=== PATIENT | male | born 1935 | race Caucasian/White ===

== ENCOUNTER 2016-05-12 09:07 | Emergency (ER) | payer OTHER, BC ==
[2016-05-12] MEDS ORDERED: NORMAL SALINE 10 ML SYRINGE FLUSH IVP PRN (09:35)
[2016-05-12 09:52] VITALS: RESP 16; TEMP 97
[2016-05-12 10:00] LABS: BUN/CREATININE RATIO 21.11 (6-20); CALCIUM 9.6 mg/dL (8.7-10.7); CREATININE 0.9 mg/dL (0.70-1.50); POTASSIUM 3.9 meq/L (3.8-5.2)
--- NOTE | 2016-05-12 11:07 | DI ---
CT SCAN OF THE NECK WITH IV CONTRAST, 05/12/2016 9:35 AM : Clinical History: Pain in the left neck extending into the throat and ear. Previous Exam: None at this facility. Scans are obtained from below the sternal notch to the petrous pyramids with IV contrast. Sagittal an d coronal images are generated. 75 ml of Isovue 300 was injected IV. The cervical vertebral bodies are of normal height and size. There is disc space narrowing at every c ervical level and there is anterior subluxation of C5 on C6 by 1 mm. The proximal 3 cm of each production intern al carotid artery is heavily calcified. There is an estimated 50% diameter stenosis in the proximal r ight internal carotid artery with no significant stenosis in the left internal carotid artery. There are no soft tissue masses on either side. No lymphadenopathy is identified. The thyroid gland, the zacarias bmandibular glands, and the parotid glands are normal. READIN. Normal CT neck scan. There is no adenopathy or evidence of a neck mass or abscess. 2. Both internal carotid arteries are heavily calcified but there is no obvious stenosis on the left side and an estimated 50% diameter stenosis on the right side. 3. Diffuse chronic disc space narrowing in the cervical spine. There is chronic anterior subluxation of C5 on C6 by 1 mm.
--- NOTE | 2016-05-12 11:28 | PDOC ---
Neck Pain / Injury HPI - General Chief Complaint: Sore Throat Stated Complaint: throat pain Date Seen by Provider: 05/12/16 Time Seen by Provider: 09:20 Source: POSITIVE: Patient - History of Present Illness Initial Comments: Patient is a very nice 80-year-old gentleman who presents to the emergency department with complaints of ongoing pain in his neck over the last week or 2. He also has had some episodes of sharp stabbing pain in his neck as well. He denies any recent weight loss or fever denies sore throat denies hearing troubles or changes though the pain does go up into his ear and into his throat intermittently. He denies any new or different trouble swallowing though he has had trouble swallowing in the past which have necessitated esophageal dilatation with EGD. He is a nonsmoker non-chewer, does not drink heavily. - Patient Home Medications Home Medications: Home Medications Vitamin B Complex/Folic Acid [B-Complex 100 Tablet] 1 tab PO DAILY 02/09/12 Nebivolol HCl [Bystolic] 1 tab PO DAILY #0 02/02/14 Aspirin 1 tab PO DAILY tab 07/13/14 Vardenafil HCl [Levitra] 20 mg PO DAILY #6 tab 09/25/14 Losartan Potassium 1 tab PO DAILY #30 tab 06/06/15 Pantoprazole Sodium 40 mg PO DAILY #90 tab 09/11/15 - Patient Allergies Allergies/Adverse Reactions: Allergies Allergy/AdvReac Type Severity Reaction Status Date / Time No Known Drug Allergies Allergy NOT Verified 05/12/16 09:09 APPLICABLE Past Medical History - heen HEENT History: Cataracts Additional HEENT History: VERY SMALL CATARACTS BILAT. cataract surgery 04/2016 Cardiovascular History: Hypertension, Pacemaker Additional Cardiovasular History: HX OF COMPLETE HEART BLOCK 2010/ AORTIC ANEURYSM 09/21/BRADYCARDIA. AAA Respiratory History: Denies History Gastrointestinal History: GERD Additional Gastrointestinal History: HX OF POLYPS AND DYSPHAGIA Genitourinary History: Denies History Endocrine History: Denies History Musculoskeletal History: Arthritis, Joint Pain, Physical Limitation Prosthesis or Implant: Yes (MESH BILAT INGUINAL HERNIA/L KNEE TOTAL) Additional Musculoskeletal History: Left TKA 12-27-13 Neurological History: Denies History Blood Disorders: Denies History Psychiatric History: Substance Abuse Additional Psychiatric History: ALCOHOL History of Sexually Transmitted Diseases: No Male Reproductive History: Denies History Cancer History: Skin In Past Year Been Physically Harmed or Verbally Threatened: No History of MDRO: Unknown History of Other Communicable Diseases: No Tobacco Use: Former Smoker Alcohol Use: Heavy Substance Use Type: None Previous Surgical History: Yes Type / Date of Surgery: PACEMAKER 2011/ BILAT INGUINAL HERNIA WITH MESH/ COLONOSCOPY/EGD/TONSILS/L TKA 12-27-13 Anesthesia Reactions: No Malignant Hyperthermia: No Significant Family History: No pertinent family hx Past Medical History Reviewed: Reviewed - No Changes ROS - Limitations ROS Limitations: No Limitations Constitution: REPORTS: Denies Symptoms Cardiovascular: REPORTS: Denies Cardiac Symptoms Respiratory: REPORTS: Denies Resp Symptoms Neck Pain/Injury Exam - General Appearance General Appearance: REPORTS: Alert, Cooperative, No Acute Distress - HEENT HEENT: POSITIVE: Head Inspection Nml, Oral/Dental Inspect. Nml, Pharynx Inspect. Nml, Other (He has some tenderness in the left aspect of his neck underneath the mandible to deep palpation. No obvious lymphadenopathy or substantial mass or other obvious physical finding other than tenderness.) - Neck Neck: POSITIVE: Normal Inspection, Non-Tender - Back Back: REPORTS: Normal Inspection - Respiratory / CVS Respiratory / CVS: POSITIVE: Chest Non Tender, No Respiratory Distress Neck Pain/Injury Progress - Results Reviewed by me Xrays/CTs/US Reviewed by me: Yes Radiology Findings: Chest x-ray shows no obvious abnormality to me official over read is pending. CT scan of his head and neck are benign with some carotid calcification to about 50% stenosis otherwise benign Lab Results Reviewed: Yes Lab Results:: Laboratory Results 05/12/16 Range/Units 09:35 Sodium 144 (135-145) meq/L Potassium 3.9 (3.8-5.2) meq/L Chloride 104 (98-112) meq/L Carbon Dioxide 26 (23-33) meq/L Anion Gap 14 (5-20) BUN 19 (7-22) mg/dL Creatinine 0.9 (0.70-1.50) mg/dL Estimated GFR (>60 ml/min/1.73m(2)) BUN/Creatinine Ratio 21.11 H (6-20) Glucose 99 (78-110) mg/dL Calculated Osmolality 299.0 H (267-292) mOsm/kg Calcium 9.6 (8.7-10.7) mg/dL - Patient's Progress MDM / ED Course: This patient has a benign physical exam he has no clear evidence of pathology on a CT scan of his neck. I'm not exactly sure what the pain generator is for this fellow. I have encouraged him to watch his symptoms closely use some Tylenol as needed and follow-up with his regular doctor in about a week. If his symptoms are persisting he may need to have consultation with ear nose and throat or neurology or something of that nature. Ultimately I reassured them that CT does not show anything substantial and that I don't see anything on exam that he has to be terribly worried about. Patient Care Time - Estimated PCT Patient Care Time (In Minutes): 30 Vital Signs - Recent Vital Signs Vital Signs: Vital Signs (Last 8 hours) Temp Pulse Resp BP Pulse Ox 05/12/16 09:08 97 F 83 16 142/98 95 - VS Reviewed Vital Signs Reviewed: Yes Discharge Clinical Impression: Neck pain Discharge Disposition: Discharged to Home Condition: Stable Patient Instructions Given at Discharge: Acute Neck Pain (ED) Additional Instructions: Follow-up with your primary care provider in the near future to discuss official results of your chest x-ray and to discuss your neck pain Use Tylenol as needed for occasional pain Consider seeing nuclear engineer if your pain persists or worsens Follow Up With: BRENT BOWENS [Primary Care Provider] -
--- NOTE | 2016-05-12 11:46 | DI ---
PA /LATERAL CHEST X-RAY, 05/12/2016 9:58 AM : Clinical History: Cough. Gastroesophageal reflux disease. Neck pain. Previous Exam: 06/14/2013. There is no acute soft tissue or bony abnormality. The patient has a dual-chamber pacemaker and the l sarika are in the appropriate position. There is cardiomegaly without CHF. Right lower lobe atelectasis is present along with some discoid atelectasis above the left costophrenic angle. There is a density overlying the lower thoracic spine in this is probably a combination of a hiatal hernia and a tortuo us aorta. There are no pulmonary nodules. Readin. There is no acute infiltrate or effusion. 2. Cardiomegaly without CHF.
== END 2016-05-12 11:30 | disposition home or self-care (01) ==
LOC: ER 09:07
DX: M54.2 Cervicalgia (principal); M48.02 Spinal stenosis, cervical region
CPT/HCPCS: 70491; 71020; 80048; 99283

== ENCOUNTER → 2016-05-13 | Outpatient (CLI) | payer OTHER, BC | LOC: MMPC 09:00 | PROVIDERS: ATTEND Family Medicine | DX: M54.2 Cervicalgia (principal); G50.0 Trigeminal neuralgia | CPT/HCPCS: 99214; G0463 ==

== ENCOUNTER → 2016-05-20 | Outpatient (CLI) | payer OTHER, BC ==
[2016-05-22 19:06] LABS: HSV 1 PCR Negative (Negative)
[2016-05-24 09:10] LABS: HSV 2 PCR Negative (Negative); VARICELLA ZOSTER PCR RESULT Negative (Negative)
== END ==
LOC: MOB LAB 15:52
PROVIDERS: ATTEND Family Medicine
DX: L98.8 Other specified disorders of the skin and subcutaneous tissue (principal)
CPT/HCPCS: 87529; 87798

== ENCOUNTER 2017-03-11 12:53 | Observation (INO) ==
[2017-03-11] MEDS ORDERED: FUROSEMIDE 10 MG/1 ML - 4 ML IVP ONE (14:23)
[2017-03-11] MEDS ORDERED: LIDOCAINE W/ SODIUM BICARB 0.5 ML SYR SUBD PRN (14:23)
--- NOTE | 2017-03-11 14:26 | EKG ---
[address] [address] Measurements Intervals [place] Rate: 60 P: -32 DC: 149 QRS: 267 QRSD: 186 T: 71 QT: 497 QTc: 499 Interpretive Statements ELECTRONIC ATRIAL PACEMAKER ELECTRONIC VENTRICULAR PACEMAKER ABNORMAL RHYTHM ECG Compared to ECG 12/16/2013 12:14:06 No significant changes Electronically Signed On 03-11-17 20:34:17 MST by Kervin Keys [email or web address]
--- NOTE | 2017-03-11 14:46 | PDOC ---
HPI - History of Present Illness Date of Service: 03/11/17 Time of Service: 14:30 Chief Complaint: Cough the last few days worse when he lays down History of Present Illness: This is a 81 years old male with medical history significant for history of hypertension, history of previous pacemaker insertion, dilated aorta on echo who went to see Dr. Woodruff today and he reported that he's been having cough mainly when he lays down its affecting his sleep he can't sleep well. He said that about 2 or 3 weeks ago he started to have cold symptoms with runny nose cough and some body aches but things improved but the cough persisted and its mainly now when he lays down. Patient is not getting enough sleep there is some slight swelling in his legs and because of all the symptoms he went to see Dr. Woodruff. He had a few tests done in her clinic and that included a BNP which was elevated at 1900 so the patient was referred for direct admission for CHF. Currently he is denying symptoms currently denying shortness of breath he said he his not feeling short of breath when he walks he doesn't think that there is fatigue but there is swelling in his legs especially on the right side. He is denying chest pain. Past Medical History Medical History: 1. Hypertension. 2. Status post pacemaker insertion for bradycardia. 3. 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 4. GERD Surgical History: 1. Bilateral hernia surgery. 2. History of pacemaker insertion. 3. Total left knee replacement Family History: Reviewed an Not Pertinent Past Social History: Patient used to smoke quit in 84, drinks 1 bottle of wine he said a day but the last time he had a drink was more than 2 weeks ago. No drugs. Lives in [place] with his partner. Tobacco Use: Former Smoker In the Past 12 Months, Have Used or Abuse Any of the Following Substance: None Alcohol Use: Heavy Medication / Allergies Home Medications: Home Medications Medication Instructions Recorded Confirmed Type Vitamin B Complex/Folic Acid 1 tab PO DAILY 02/09/12 03/11/17 History [B-Complex 100 Tablet] Nebivolol HCl [Bystolic] 1 tab PO DAILY #0 02/02/14 03/11/17 History Aspirin 1 tab PO DAILY tab 07/13/14 03/11/17 History Losartan Potassium 1 tab PO DAILY #30 tab 06/06/15 03/11/17 History Mupirocin Calcium [Bactroban] 1 applic TOPICAL QID PRN #1 tube 05/20/16 History pantoprazole 40 mg tablet,delayed 40 mg PO BID #360 tab 03/11/17 03/11/17 Rx release Allergies/Adverse Reactions: Allergies 3 Allergy/AdvReac Type Severity Reaction Status Date / Time No Known Drug Allergies Allergy NOT Verified 03/11/17 10:45 APPLICABLE Review of Systems - Review of Systems All Systems: Reviewed & No Additional Complaints Except as Stated Exam - Vitals Vital Signs: Vital Signs Temperature 97.8 F Temperature Source Temporal Artery Scan Pulse Rate [Apical] 126 Respiratory Rate 20 Blood Pressure [Left Arm] 168/128 Pulse Ox 96 Oxygen Delivery Method Room Air Height 6 ft 3 in Weight 189 lb 9.6 oz - General General Appearance: No Acute Distress, Cooperative - Head Head Exam: Normal Inspection - Eye Eye Exam: POSITIVE: Normal Appearance - ENT ENT Exam: POSITIVE: Normal Exam - Neck Neck Exam: Normal Inspection - Respiratory Additional Respiratory Exam Details: Few crackles heard at the bases - Cardiovascular Cardiovascular Exam: POSITIVE: RRR - GI/Abdominal GI/Abdominal Exam: POSITIVE: Normal Bowel Sounds, Non Tender, Non Distended, Soft, No Organomegaly - Rectal Rectal Exam: POSITIVE: Deferred - External Exam: POSITIVE: Deferred - Extremities Additional Extremities Exam Details: Varicose vein noted on the right. Some edema in both legs worse slightly worse on the right - Back Additional Back Exam Details: Kyphosis is noted - Neurological Neurological Exam: POSITIVE: Alert, Oriented x 3, CN II-XII Intact, Speech Intact / Clear, Moves All Extremities Equally - Psychiatric Psychiatric Exam: POSITIVE: Normal Affect Assessment and Plan - Patient Problems (1) Cough Current Visit: No Status: Acute Comment: Etiology unclear, with the elevated BNP will do an echocardiogram to see whether this is a manifestation of heart failure, he is denying though shortness of breath he is denying chest pain, there may be orthopnea as he said he's been putting 2 pillows because of his GERD. I think will do an echocardiogram will give him a dosage of Lasix and see whether that would improve his symptoms. I will also do a CT of the chest to look at the lungs as areas of atelectasis are noted on the chest x-ray. Code(s): R05 - Cough (2) Benign essential hypertension Current Visit: No Status: Acute Onset Date: 12/27/10 Comment: Continue previous medications Code(s): I10 - Essential (primary) hypertension (3) GERD (gastroesophageal reflux disease) Current Visit: Yes Status: Acute Comment: Same med Code(s): K21.9 - Gastro-esophageal reflux disease without esophagitis
[2017-03-11] MEDS: NORMAL SALINE 10 ML SYRINGE FLUSH IVP PRN (15:05)
[2017-03-11] MEDS: ACYCLOVIR 400 MG TABLET PO SCH ×2 (19:11→21:29)
[2017-03-11] MEDS: PANTOPRAZOLE 40 MG TABLET PO SCH (21:29)
[2017-03-11] MEDS: traZODone Tab 50 MG TAB PO SCH (21:30)
[2017-03-11] MEDS: OPTHALMIC LEFT EYE SCH ×2 (21:31)
[2017-03-11] MEDS: SODIUM CHLORIDE LEFT EYE SCH (21:31)
[2017-03-11] MEDS: [UNRECOGNIZED DRUG - OTHER] LEFT EYE SCH (21:31)
[2017-03-11] MEDS: PREDNISOLONE ACETATE 1% LEFT EYE SCH (21:31)
[2017-03-12] MEDS: ACYCLOVIR 400 MG TABLET PO SCH ×2 (05:56→20:43)
[2017-03-12] MEDS ORDERED: FUROSEMIDE 10 MG/1 ML - 4 ML IVP SCH (07:00)
[2017-03-12 07:07] LABS: BLOOD UREA NITROGEN 18 mg/dL (7-22)
[2017-03-12] MEDS: FUROSEMIDE 10 MG/1 ML - 4 ML IVP SCH ×2 (08:07→16:09)
[2017-03-12] MEDS: ASPIRIN 325 MG TABLET PO SCH (08:14)
[2017-03-12] MEDS: FOLIC ACID 1 MG TABLET PO SCH (08:15)
[2017-03-12] MEDS: NEBIVOLOL HCL 5 MG TABLET PO SCH (08:15)
[2017-03-12] MEDS: PANTOPRAZOLE 40 MG TABLET PO SCH ×2 (08:15→20:43)
[2017-03-12] MEDS: LOSARTAN 50 MG TABLET PO SCH (08:15)
[2017-03-12] MEDS: POTASSIUM CHLORIDE 20 MEQ TAB PO SCH (08:15)
[2017-03-12] MEDS: OPTHALMIC LEFT EYE SCH ×5 (08:18→20:44)
[2017-03-12] MEDS: PREDNISOLONE ACETATE 1% LEFT EYE SCH ×2 (08:18→20:44)
[2017-03-12] MEDS: [UNRECOGNIZED DRUG - OTHER] LEFT EYE SCH ×3 (08:19→20:44)
--- NOTE | 2017-03-12 09:25 | PDOC(PROG) ---
Date and Time of Service: 03/12/2017 9:23 AM Interval History: Subjective Patient feels a lot better he said compared to yesterday. He was able to sleep. The cough is improved by 80% than what it was. No other symptoms. He put like 3 pillows last night to sleep. No fever and no shakes. Objective : Data - Labs CBC and BMP: 03/12/17 06:15 Objective : Exam - General General Appearance: No Acute Distress, Cooperative - Head Head Exam: Normal Inspection - Eye Eye Exam: Normal Appearance - ENT ENT Exam: Normal Exam - Neck Neck Exam: Normal Inspection - Respiratory Respiratory Exam: Clear to Auscultation - Bilaterally - Cardiovascular Cardiovascular Exam: RRR - GI/Abdominal GI/Abdominal Exam: Normal Bowel Sounds, Non Tender, Non Distended, Soft - Rectal Rectal Exam: Deferred - External Exam: Deferred - Extremities Extremities Exam: Normal Inspection - Back Back Exam: Normal Inspection - Neurological Neurological Exam: Alert, Oriented x 3, CN II-XII Intact, No Facial Droop, Speech Intact / Clear, Moves All Extremities Equally - Psychiatric Psychiatric Exam: Normal Affect - Integumentary Integumentary Exam: Normal Color Assessment and Plan - Patient Problems (1) Cough Current Visit: No Status: Acute Comment: We treating him as the CHF with IV Lasix as he continue to improve continue treatment. The CT that he had yesterday I did not get the results until today I spoke with the radiologist and still dont have the official report though he said there may be early pneumonia. This doesn't go with the clinical picture though as he doesn't have fever, no white count and he's actually feeling better after the Lasix so hard to fit this into the clinical picture. I think will see what the echo shows and then will decide whether we need to initiate antibiotics. Code(s): R05 - Cough (2) Benign essential hypertension Current Visit: No Status: Acute Onset Date: 12/27/10 Comment: Same medications Code(s): I10 - Essential (primary) hypertension (3) GERD (gastroesophageal reflux disease) Current Visit: Yes Status: Acute Comment: Same medications Code(s): K21.9 - Gastro-esophageal reflux disease without esophagitis
[2017-03-12] MEDS ORDERED: AZITHROMYCIN 250 MG TABLET PO ONE (12:38)
--- NOTE | 2017-03-12 13:50 | DI ---
CT Chest WO Contrast,03/11/2017 2:37 PM: Clinical History: Cough Previous Exam: None available. Findings: Multiple helically acquired CT images are obtained through the chest without contrast, and demonstrat e some mild subsegmental atelectasis in the lung bases. A pacemaker device is seen within the right anterior chest wall with the leads in good position. A few coronary artery calcifications are seen. Peripheral vascular calcification is also noted. There is some vague airspace disease within the perihilar left upper lobe. The thyroid is unremarkable. Diffuse degenerative changes of the spine are seen. The upper abdomen demonstrates some severe left hydronephrosis not well evaluated on this exam. Impression: 1. Vague alveolar filling within the left parahilar right upper lobe could represent a very early pne umonia or simply inflammatory change. 2. Severe left hydronephrosis.
[2017-03-12] MEDS: NORMAL SALINE 10 ML SYRINGE FLUSH IVP PRN (16:11)
[2017-03-12] MEDS: SODIUM CHLORIDE LEFT EYE SCH (20:44)
[2017-03-12] MEDS: traZODone Tab 50 MG TAB PO SCH ×2 (20:46→23:00)
[2017-03-13 06:31] LABS: Hematocrit [HCT] 43.1 % (42.0-52.0); Hemoglobin [HGB] 14.6 g/dL (14.0-18.0); MEAN CORPUSCULAR VOLUME 103 FL (80-90); RED BLOOD COUNT 4.19 10^6/uL (4.70-6.10)
[2017-03-13 06:32] LABS: BASOPHILS % (AUTO) 0.6 % (0-1); EOSINOPHILS % (AUTO) 4.3 % (0-8); LYMPHOCYTES # (AUTO) 1.88 10*3/uL; MEAN PLATELET VOLUME 8.1 FL (7.4-12.2); MONOCYTES # (AUTO) 0.49 10*3/UL (0.3-0.8); MONOCYTES % (AUTO) 7.4 % (5-15); NEUTROPHILS # (AUTO) 3.92 10*3/UL; NEUTROPHILS % (AUTO) 59.3 % (50-80)
[2017-03-13 06:33] LABS: BASOPHILS # (AUTO) 0.04 10*3/UL; EOSINOPHILS # (AUTO) 0.28 10*3/UL; PLATELET MORPHOLOGY COMMENT NORMAL MORPHOLOGY (NORM); RBC MORPHOLOGY COMMENT NORMAL MORPHOLOGY (NORM); WBC MORPHOLOGY COMMENT NORMAL MORPHOLOGY (NORM)
[2017-03-13] MEDS: FUROSEMIDE 10 MG/1 ML - 4 ML IVP SCH (06:36)
[2017-03-13 06:42] LABS: BLOOD UREA NITROGEN 25 mg/dL (7-22)
--- NOTE | 2017-03-13 08:31 | PDOC(PROG) ---
Date and Time of Service: 03/13/2017 8:26 AM Interval History: Subjective He said he had a rough night last night, because he wanted the to go home but otherwise the cough actually is improved. No shortness of breath. Swelling improved Objective : Data - Labs CBC and BMP: 03/13/17 06:08 03/13/17 06:08 Objective : Exam - General General Appearance: No Acute Distress, Cooperative - Head Head Exam: Normal Inspection - Eye Eye Exam: Normal Appearance - ENT ENT Exam: Normal Exam - Neck Neck Exam: Normal Inspection - Respiratory Additional Respiratory Exam Details: Decreased air entry otherwise clear - Cardiovascular Cardiovascular Exam: RRR - GI/Abdominal GI/Abdominal Exam: Normal Bowel Sounds, Non Tender, Non Distended, Soft, No Organomegaly - Rectal Rectal Exam: Deferred - External Exam: Deferred - Extremities Additional Extremities Exam Details: The edema resolved. - Back Back Exam: No CVA Tenderness - Neurological Neurological Exam: Alert, Oriented x 3, CN II-XII Intact, Speech Intact / Clear , Moves All Extremities Equally - Psychiatric Psychiatric Exam: Normal Affect - Integumentary Integumentary Exam: Normal Color Assessment and Plan - Patient Problems (1) Cough Status: Acute Comment: This is improved. I did decide to start him on antibiotics with Zithromax, in addition to the treatment with the Lasix. I think we can discharge him home today. But there is evidence of hydronephrosis on the CT scan so we'll do the ultrasound and then discharge him after that. Code(s): R05 - Cough (2) Benign essential hypertension Status: Acute Onset Date: 12/27/10 Comment: Same meds blood pressure is better now Code(s): I10 - Essential (primary) hypertension (3) GERD (gastroesophageal reflux disease) Status: Acute Comment: Same med Code(s): K21.9 - Gastro-esophageal reflux disease without esophagitis (4) Hydronephrosis, left Status: Acute Comment: There is left hydronephrosis that was seen on the CT so I ordered ultrasound today. We'll discharge him after that and see if this is correct. Code(s): N13.30 - Unspecified hydronephrosis
[2017-03-13 08:43] VITALS: BP 120/70; RESP 16; TEMP 96.8; O2SAT 93
[2017-03-13] MEDS ORDERED: AZITHROMYCIN 250 MG TABLET PO SCH (09:00)
[2017-03-13] MEDS: FOLIC ACID 1 MG TABLET PO SCH (09:28)
[2017-03-13] MEDS: ASPIRIN 325 MG TABLET PO SCH (09:28)
[2017-03-13] MEDS: PANTOPRAZOLE 40 MG TABLET PO SCH (09:29)
[2017-03-13] MEDS: POTASSIUM CHLORIDE 20 MEQ TAB PO SCH (09:29)
[2017-03-13] MEDS: LOSARTAN 50 MG TABLET PO SCH (09:29)
[2017-03-13] MEDS: NEBIVOLOL HCL 5 MG TABLET PO SCH (09:29)
[2017-03-13] MEDS: ACYCLOVIR 400 MG TABLET PO SCH (09:30)
[2017-03-13] MEDS: OPTHALMIC LEFT EYE SCH ×2 (09:34→09:35)
[2017-03-13] MEDS: PREDNISOLONE ACETATE 1% LEFT EYE SCH (09:34)
[2017-03-13] MEDS: [UNRECOGNIZED DRUG - OTHER] LEFT EYE SCH (09:35)
--- NOTE | 2017-03-13 10:40 | DI ---
US Retroperitoneum,03/13/2017 8:00 AM: Clinical History: Possible left-sided hydronephrosis seen on a CT of the chest. Previous Exam: CT chest performed March 11, 2017 Findings: Multiple grayscale and color Doppler sonographic images are obtained through the retroperitoneum. Right kidney measures 10.6 cm in length without hydronephrosis. There is some renal cortical thinning . There is a small post void residual. There is left renal cortical thinning as well. The cystic area seen on the CT on this exam appears to represent a large parapelvic cyst especially given the fact that there is no extension into the bowen taran. There is a small post void residual measuring 40 cc. Impression: 1. Large cystic area within the left renal sinus appears to represent a parapelvic cyst. This can onl y be definitively confirmed with a CT IVP. Correlate with costovertebral angle tenderness. 2. Bilateral renal cortical thinning..
--- NOTE | 2017-03-13 11:24 | DCSUMMARY ---
Hospitalization Summary Admit Date: 03/11/2017 Discharge Date: 03/13/17 Hospital Course: Discharge diagnoses 1. CHF with preserved ejection fraction 2. Vague alveolar filling within the left parahilar left upper lobe could represent very early pneumonia or simply inflammatory change 3. Large cystic area within the left renal sinus appears to represent a parapelvic cyst 4. Hypertension 5. Status post pacemaker insertion for bradycardia 6. Intermittent episode of tachycardia and has a history of paroxysmal atrial tachycardia 7. Mildly dilated thoracic aorta on echo done in 2013 8. GERD Hospital course This is a 81 years old male with medical history significant for history of hypertension, history of previous pacemaker insertion, dilated aorta on echo who was sent today hospital from Dr. Woodruff office as he presented with history of cough which is being going on for few days. He said the cough is mainly when he lays down and affecting his sleeping, sleep well. The cough is nonproductive. about 3 weeks before admission he then thought what he described as cold symptoms with runny nose, cough and body aches but things improved but the cough persisted and mainly now present when he lays down. In addition he had some slight swelling in his legs and because of that he would see Dr. Woodruff had a few tests and that showed elevated BNP at 1900 so he was referred for admission for CHF. When I saw his exam was remarkable for some edema in his legs. Hard to say whether the JVP was elevated or not. We elected to treat him with the Lasix. And because of that of symptoms he also had CT of the chest, CT of the chest showed vague alveolar filling within the left parahilar left upper lobe could represent very early pneumonia or simply inflammatory change. We elected to start him also on antibiotics in addition to the Lasix. He did have an echocardiogram done the next day, I don't have the official report but per my discussion with the nanotechnology engineering technician that showed diastolic dysfunction but ejection fraction was normal. With diuretics and antibiotics he started to improve and on the day of discharge he was doing much better. His edema is gone. The CT of the chest did show initially suggested left hydronephrosis he did have an ultrasound done the next day which showed large cystic area within the left renal sinus appeared to represent a parapelvic cyst. There was no vertebral angle tenderness also suggest that its a cyst. The radiologist thought this can be confirmed further by doing a CT IVP. Since he didn't have symptoms and wanted to go home we thought that we can discharge him home and this can be looked at later on as an outpatient. While he was here, we also noted that sometimes he go into fast rhythm he said he this been going on since he was a teenager . now they're happening every now and then but it seems to be asymptomatic. They don't last long. He said his guardian ad litem told him about it as he seen it when they interrogated the pacemaker and decided to watch it. Abnormal Lab Results (Last 24 Hours) Range/Units 03/13/17 03/13/17 06:08 06:08 RBC (4.70-6.10) 10^6/uL 4.19 L MCV (80-90) FL 103 H MCH (27-31) PG 35.0 H RDW Coeff of Araceli (11.5-14.5) % 11.1 L Potassium (3.8-5.2) meq/L 3.6 L BUN (7-22) mg/dL 25 H BUN/Creatinine Ratio (6-20) 25.00 H Calculated Osmolality (267-292) mOsm/kg 294.0 H NT-Pro-B Natriuret Pep (0-450) PG/ML 594 H Discharge instruction Diet low-salt activity as started Medications Current Medication(s) 3 Medication Instructions Recorded Confirmed Type Vitamin B Complex/Folic Acid 1 tab PO DAILY 02/09/12 03/11/17 History [B-Complex 100 Tablet] Nebivolol HCl [Bystolic] 1 tab PO DAILY #0 02/02/14 03/11/17 History Aspirin 1 tab PO DAILY tab 07/13/14 03/11/17 History Losartan Potassium 1 tab PO DAILY #30 tab 06/06/15 03/11/17 History Mupirocin Calcium [Bactroban] 1 applic TOPICAL QID PRN #1 tube 05/20/16 History pantoprazole 40 mg tablet,delayed 40 mg PO BID #360 tab 03/11/17 03/11/17 Rx release Acyclovir [Zovirax] 400 mg PO BID tab 03/13/17 Rx Azithromycin [Zithromax] 250 mg PO DAILY #3 tab 03/13/17 Rx Folic Acid 1 mg PO DAILY tab 03/13/17 Rx Furosemide [Lasix] 20 mg PO DAILY #30 tab 03/13/17 Rx Potassium Chloride [Klor-Con] 20 meq PO DAILY #30 tab 03/13/17 Rx Follow-up PCP in 1-2 weeks Condition at discharge was stable for discharge Exam - Vitals Vital Signs: Vital Signs Temperature 96.8 F Temperature Source Temporal Artery Scan Pulse Rate [Pulse Oximeter] 89 Pulse Rate [Apical] 86 Pulse Rate 63 Respiratory Rate 16 Blood Pressure [Left Arm] 120/70 Blood Pressure 153/102 Pulse Ox 93 Oxygen Delivery Method Room Air Height 6 ft 3 in Weight 177 lb 9.6 oz Patient Problems - Patient Problem List (1) Cough Status: Acute Code(s): R05 - Cough Category: Medical (2) Benign essential hypertension Status: Acute Onset Date: 12/27/10 Code(s): I10 - Essential (primary) hypertension Category: Medical (3) GERD (gastroesophageal reflux disease) Status: Acute Code(s): K21.9 - Gastro-esophageal reflux disease without esophagitis Category: Medical (4) Hydronephrosis, left Status: Acute Code(s): N13.30 - Unspecified hydronephrosis Category: Medical
== END 2017-03-13 10:49 | disposition home or self-care (01) ==
LOC: MED/SURG 13:01 → INTOOBSV 13:01
PROVIDERS: ADMIT Internal Medicine; ATTEND Internal Medicine